=== PATIENT | male | born 1995 | race Hispanic/Latino ===

== ENCOUNTER 2017-02-26 21:27 | Emergency (ER) | payer OTHER, SELFPAY ==
[2017-02-26] MEDS ORDERED: hydrOXYzine 25 MG TAB ONE (22:32)
[2017-02-26 23:03] LABS: #Basophils 0.1 thou/uL (0.0-0.2); #Eosinphils 0.5 thou/uL (0.0-0.7); #Lymphocytes 3.6 thou/uL (1.20-3.40); #Monocytes 0.9 thou/uL (0.11-0.59); #Neutrophils 2.4 thou/uL (1.40-6.50); %Basophils 1.7 % (0.0-1.0); %Eosinophils 6.4 % (0.0-10.0); %Lymphocytes 47.9 % (28.0-48.0); %Monocytes 12.3 % (0.0-4.0); Hematocrit 44.2 % (42.0-52.0); Mean Platelet Volume 6.4 fL (7.4-10.4); Red Blood Cell (RBC) Count 4.96 mill/uL (4.00-5.20); White Blood Cell (WBC) Count 7.4 thou/uL (4.8-10.8)
[2017-02-26] MEDS ORDERED: Bacitracin Zinc 1 Packet ONE (23:03)
[2017-02-26 23:14] LABS: ALT (SGPT) 16 U/L (8-55); AST (SGOT) 19 U/L (10-45); Alkaline Phosphatase 114 U/L (Less than 750); Anion Gap 10 mmol/L (10-20); BUN (Urea Nitrogen) 12 mg/dL (8.4-21.0); Bilirubin, Total 0.5 mg/dL (0.2-1.2); Calc. Creatinine Clearance 0 mL/min (70-130); Calcium 9.3 mg/dL (7.8-10.44); Carbon Dioxide 28 mmol/L (22-29); Chloride 105 mmol/L (98-107); Estimated GFR-MDRD 84; Globulin 3.1 g/dL (2.4-3.5); Protein, Total 7.3 g/dL (6.0-8.3)
== END 2017-02-26 23:40 | disposition home or self-care (01) ==
LOC: ERS 21:27
DX: E80.1 Porphyria cutanea tarda (principal)
CPT/HCPCS: 36415; 80053; 83540; 85025; 85652; 86140; 99283